=== PATIENT | male | born 1955 | race Caucasian/White ===

== ENCOUNTER → 2024-06-15 12:10 | Outpatient (REF) | payer MEDICARE, MEDICAID, SELFPAY | LOC: RAD 12:10 | PROVIDERS: FAMILY PHYSICIAN Internal Medicine; REFERRING PHYSICIAN Urology | DX: R31.0 Gross hematuria (principal) | CPT/HCPCS: 74178; Q9967 ==

== ENCOUNTER 2024-07-31 06:23 | Day surgery (SDC) | payer MEDICARE, SELFPAY ==
[2024-07-31 10:54] LABS: Glucose - Point of Care 152 mg/dl (70-99)
== END 2024-07-31 13:01 | disposition home or self-care (01) ==
LOC: GI 06:23
PROVIDERS: ATTENDING PHYSICIAN Internal Medicine Gastroenterology
DX: Z12.11 Encounter for screening for malignant neoplasm of colon (principal); K57.30 Diverticulosis of large intestine without perforation or abscess without bleeding; K64.8 Other hemorrhoids; R12 Heartburn; K21.00 Gastro-esophageal reflux disease with esophagitis, without bleeding; K31.89 Other diseases of stomach and duodenum; K57.10 Diverticulosis of small intestine without perforation or abscess without bleeding; D12.5 Benign neoplasm of sigmoid colon; K31.A19 Gastric intestinal metaplasia without dysplasia, unspecified site
CPT/HCPCS: 45385; 43239; 88305; 82962